=== PATIENT | female | born 1970 | race Caucasian/White ===

== ENCOUNTER → 2017-03-24 | Outpatient (CLI) | payer BC ==
[~2017-03-24] MED LIST: IBUP200C42 PO; METO25TA40 PO
--- NOTE | 2017-03-24 17:00 | DI ---
Indication: ITS.REASON: N83.209 Unspecified ovarian cyst, unspecified side; R10.31 Right PROCEDURE: US TRANSVAGINAL (NON-OB): Encounter: Initial Comparison: None FINDINGS: Transvaginal pelvic imaging was performed. The uterus is surgically absent. Vaginal cuff shows no obvious mass. Left ovary is not seen and reportedly surgically absent. The right ovary appears normal and measures 1.5 x 1 x 0.9 cm. There are no abnormal adnexal masses detected. Normal Doppler flow to the right ovary. No free fluid. IMPRESSION: No acute abnormality seen. .
== END ==
LOC: IMA 16:14
PROVIDERS: ATTEND Physician Assistant
DX: R10.31 Right lower quadrant pain (principal); Z90.721 Acquired absence of ovaries, unilateral